=== PATIENT | female | born 1960 | race Two or more races ===

== ENCOUNTER 2023-01-24 12:54 | Outpatient (REF) | payer MEDICARE, OTHER, SELFPAY ==
--- NOTE | ~2023-01-24 | XR_ITS ---
EXAMINATION: XR KNEE, BILATERAL XR HAND/WRIST, BILATERAL XR KNEE STANDING, BILATERAL CLINICAL INDICATIONS: Arthropathic psoriasis. COMPARISON: None available. TECHNIQUE: AP bilateral knee standing, 2 views each knee. 4 views each hand and wrist. FINDINGS: AP BILATERAL KNEE STANDING: There is mild reduction in the medial compartment joint space both knees. The lateral compartment joint space is preserved. No visible acute fracture, dislocation or bony erosive changes seen. BILATERAL KNEE: The tricompartment joint space is preserved. No visible acute fracture or dislocation seen. No bony erosive changes. The soft tissues are normal. No joint effusion seen. BILATERAL HAND/WRIST: There is severe degenerative arthritic changes PIP and DIP joints all digits and both hands. There is moderate periarticular spurring DIP joint 2nd, 3rd, PIP and DIP joints 4th and 5th digits right hand. Similar findings are seen in the left hand involving DIP joints all digits and PIP joint 5th digit. Moderate osteophytosis is seen in the PIP joint 1st digit left hand. Mild degenerative arthritic changes 1st carpometacarpal joint left hand is noted. There is no visible acute fracture or dislocation seen. No subluxation. There is soft tissue swelling along the PIP and DIP joints both digits. XR/XR knee LT 3V IMPRESSION: 1. Severe degenerative arthritic changes PIP and DIP joints all digits and 1st digit of both hands. No visible acute fracture, dislocation or subluxation seen. 2. Mild degenerative changes medial compartment both knees. 3. Unremarkable bilateral knee exam.
--- NOTE | ~2023-01-24 | XR_ITS ---
EXAMINATION: XR KNEE, BILATERAL XR HAND/WRIST, BILATERAL XR KNEE STANDING, BILATERAL CLINICAL INDICATIONS: Arthropathic psoriasis. COMPARISON: None available. TECHNIQUE: AP bilateral knee standing, 2 views each knee. 4 views each hand and wrist. FINDINGS: AP BILATERAL KNEE STANDING: There is mild reduction in the medial compartment joint space both knees. The lateral compartment joint space is preserved. No visible acute fracture, dislocation or bony erosive changes seen. BILATERAL KNEE: The tricompartment joint space is preserved. No visible acute fracture or dislocation seen. No bony erosive changes. The soft tissues are normal. No joint effusion seen. BILATERAL HAND/WRIST: There is severe degenerative arthritic changes PIP and DIP joints all digits and both hands. There is moderate periarticular spurring DIP joint 2nd, 3rd, PIP and DIP joints 4th and 5th digits right hand. Similar findings are seen in the left hand involving DIP joints all digits and PIP joint 5th digit. Moderate osteophytosis is seen in the PIP joint 1st digit left hand. Mild degenerative arthritic changes 1st carpometacarpal joint left hand is noted. There is no visible acute fracture or dislocation seen. No subluxation. There is soft tissue swelling along the PIP and DIP joints both digits. XR/XR hand wrist LT IMPRESSION: 1. Severe degenerative arthritic changes PIP and DIP joints all digits and 1st digit of both hands. No visible acute fracture, dislocation or subluxation seen. 2. Mild degenerative changes medial compartment both knees. 3. Unremarkable bilateral knee exam.
--- NOTE | ~2023-01-24 | XR_ITS ---
EXAMINATION: XR KNEE, BILATERAL XR HAND/WRIST, BILATERAL XR KNEE STANDING, BILATERAL CLINICAL INDICATIONS: Arthropathic psoriasis. COMPARISON: None available. TECHNIQUE: AP bilateral knee standing, 2 views each knee. 4 views each hand and wrist. FINDINGS: AP BILATERAL KNEE STANDING: There is mild reduction in the medial compartment joint space both knees. The lateral compartment joint space is preserved. No visible acute fracture, dislocation or bony erosive changes seen. BILATERAL KNEE: The tricompartment joint space is preserved. No visible acute fracture or dislocation seen. No bony erosive changes. The soft tissues are normal. No joint effusion seen. BILATERAL HAND/WRIST: There is severe degenerative arthritic changes PIP and DIP joints all digits and both hands. There is moderate periarticular spurring DIP joint 2nd, 3rd, PIP and DIP joints 4th and 5th digits right hand. Similar findings are seen in the left hand involving DIP joints all digits and PIP joint 5th digit. Moderate osteophytosis is seen in the PIP joint 1st digit left hand. Mild degenerative arthritic changes 1st carpometacarpal joint left hand is noted. There is no visible acute fracture or dislocation seen. No subluxation. There is soft tissue swelling along the PIP and DIP joints both digits. XR/XR knee RT 3V IMPRESSION: 1. Severe degenerative arthritic changes PIP and DIP joints all digits and 1st digit of both hands. No visible acute fracture, dislocation or subluxation seen. 2. Mild degenerative changes medial compartment both knees. 3. Unremarkable bilateral knee exam.
--- NOTE | ~2023-01-24 | XR_ITS ---
EXAMINATION: XR KNEE, BILATERAL XR HAND/WRIST, BILATERAL XR KNEE STANDING, BILATERAL CLINICAL INDICATIONS: Arthropathic psoriasis. COMPARISON: None available. TECHNIQUE: AP bilateral knee standing, 2 views each knee. 4 views each hand and wrist. FINDINGS: AP BILATERAL KNEE STANDING: There is mild reduction in the medial compartment joint space both knees. The lateral compartment joint space is preserved. No visible acute fracture, dislocation or bony erosive changes seen. BILATERAL KNEE: The tricompartment joint space is preserved. No visible acute fracture or dislocation seen. No bony erosive changes. The soft tissues are normal. No joint effusion seen. BILATERAL HAND/WRIST: There is severe degenerative arthritic changes PIP and DIP joints all digits and both hands. There is moderate periarticular spurring DIP joint 2nd, 3rd, PIP and DIP joints 4th and 5th digits right hand. Similar findings are seen in the left hand involving DIP joints all digits and PIP joint 5th digit. Moderate osteophytosis is seen in the PIP joint 1st digit left hand. Mild degenerative arthritic changes 1st carpometacarpal joint left hand is noted. There is no visible acute fracture or dislocation seen. No subluxation. There is soft tissue swelling along the PIP and DIP joints both digits. XR/XR hand wrist RT IMPRESSION: 1. Severe degenerative arthritic changes PIP and DIP joints all digits and 1st digit of both hands. No visible acute fracture, dislocation or subluxation seen. 2. Mild degenerative changes medial compartment both knees. 3. Unremarkable bilateral knee exam.
--- NOTE | ~2023-01-24 | XR_ITS ---
EXAMINATION: XR KNEE, BILATERAL XR HAND/WRIST, BILATERAL XR KNEE STANDING, BILATERAL CLINICAL INDICATIONS: Arthropathic psoriasis. COMPARISON: None available. TECHNIQUE: AP bilateral knee standing, 2 views each knee. 4 views each hand and wrist. FINDINGS: AP BILATERAL KNEE STANDING: There is mild reduction in the medial compartment joint space both knees. The lateral compartment joint space is preserved. No visible acute fracture, dislocation or bony erosive changes seen. BILATERAL KNEE: The tricompartment joint space is preserved. No visible acute fracture or dislocation seen. No bony erosive changes. The soft tissues are normal. No joint effusion seen. BILATERAL HAND/WRIST: There is severe degenerative arthritic changes PIP and DIP joints all digits and both hands. There is moderate periarticular spurring DIP joint 2nd, 3rd, PIP and DIP joints 4th and 5th digits right hand. Similar findings are seen in the left hand involving DIP joints all digits and PIP joint 5th digit. Moderate osteophytosis is seen in the PIP joint 1st digit left hand. Mild degenerative arthritic changes 1st carpometacarpal joint left hand is noted. There is no visible acute fracture or dislocation seen. No subluxation. There is soft tissue swelling along the PIP and DIP joints both digits. XR/XR knee standing BI IMPRESSION: 1. Severe degenerative arthritic changes PIP and DIP joints all digits and 1st digit of both hands. No visible acute fracture, dislocation or subluxation seen. 2. Mild degenerative changes medial compartment both knees. 3. Unremarkable bilateral knee exam.
[2023-01-24 15:47] LABS: Basophils Absolute Auto 0.1 X10*3/uL (0.0-0.2); Basophils Percent Auto 0.9 % (0-2); Eosinophils Absolute Auto 0.2 X10*3/uL (0.0-0.4); Eosinophils Percent Auto 3.3 % (0-4); Hematocrit 39.2 % (37.0-47.0); Hemoglobin 12.7 g/dl (12.0-16.0); Imm Gran Abs Auto 0.01 X10*3/uL (0.00-0.03); Imm Gran Pct Auto 0.2 % (0.0-0.4); Lymphocytes Absolute Auto 2.1 X10*3/uL (1.2-4.9); Lymphocytes Percent Auto 38.3 % (20-40); MANUAL DIFF FLAG NO; Mean Corpuscular HGB Conc 32.4 g/dl (31.0-35.0); Mean Corpuscular Volume 92.7 fL (80.0-98.0); Mean Platelet Volume 11.8 fL (9.4-12.3); Monocytes Absolute Auto 0.5 X10*3/uL (0.1-1.2); Monocytes Percent Auto 9.4 % (2-11); Neutrophils Absolute Auto 2.6 x10*3/uL (2.0-8.3); Neutrophils Percent Auto 47.9 % (45-73); Platelet Count 238 X10*3/uL (160-400); Red Blood Count 4.23 X10*6/uL (4.20-5.50); Red Cell Distribution Width 13.7 % (11.0-16.0); White Blood Count 5.5 X10*3/uL (4.8-10.8)
[2023-01-24 16:23] LABS: Erythrocyte Sedimentation Rate 10 MM/HR (0-20)
[2023-01-24 16:53] LABS: Alanine Aminotransferase 19 U/L (0-31); Alkaline Phosphatase 144 U/L (39-117); Anion Gap 14 (12-20); Aspartate Amino Transferase 18 U/L (5-31); Bilirubin Total 0.2 mg/dL (0.0-1.0); Blood Urea Nitrogen 15 mg/dL (9-16); C Reactive Protein < 0.10 mg/dL (< or = 0.50); Calcium 9.4 mg/dL (8.4-10.2); Carbon Dioxide 23 mmol/L (22-29); Chloride 111 mmol/L (96-108); Estimated Glomerular Filt Rate > 60; Glucose Random 92 mg/dL (60-115); Sodium 144 mmol/L (135-145); Total Protein 6.8 g/dL (6.5-8.0); Uric Acid 5.4 mg/dL (2.4-5.7)
[2023-01-26 04:01] LABS: HBc Num1 0.09 S/CO (0.00-0.79); HBsAGNum1 0.37 S/CO (0.00-0.99); Hepatitis A Antibody IgM 0.13 Index (0-0.79); Hepatitis B Core Antibody Nonreactive (Nonreactive); Hepatitis B Surface Antigen Negative (Negative); ~HepC Num1 0.09 S/CO (0.00-0.79); ~Hepatitis A Antibody IgM Nonreactive (Nonreactive); ~Hepatitis B Surface Antibody NONREACTIVE (Nonreactive); ~Hepatitis C Antibody Nonreactive (Nonreactive)
[2023-01-26 14:53] LABS: TS Negative Control Passed; TS Panel A 1; TS Panel B 3; TS Positive Control Passed; TSpotTB Negative (Negative)
[2023-01-30 22:42] LABS: Prot Elec - Alpha1 0.3 g/dL (0.2-0.3); Prot Elec - Alpha2 0.8 g/dL (0.5-0.9); Prot Elec - Beta 1 0.5 g/dL (0.4-0.6); Prot Elec - Beta 2 0.4 g/dL (0.2-0.5); Prot Elec - Gamma 0.8 g/dL (0.8-1.7); Prot Elec - Total Protein 6.8 g/dL (6.1-8.1)
[2023-02-01 12:09] LABS: IgA 260 mg/dL (70-320); IgG 965 mg/dL (600-1540); IgM 37 mg/dL (50-300)
== END 2023-01-24 12:55 | disposition home or self-care (01) ==
LOC: HO.LAB 12:54
PROVIDERS: PCP Family Medicine; Visit Provider Student in an Organized Health Care Education/Training Program
DX: Z11.59 Encounter for screening for other viral diseases (principal); Z11.7 Encounter for testing for latent tuberculosis infection; L40.50 Arthropathic psoriasis, unspecified; M25.542 Pain in joints of left hand; M79.7 Fibromyalgia; Z72.89 Other problems related to lifestyle
CPT/HCPCS: 36415; 73110; 73130; 73562; 73564; 73565; 80053; 82784; 84165; 84550; 85025; 85652; 86140; 86334; 86481; 86704; 86706; 86709; 86803; 87340; 99202

== ENCOUNTER 2023-04-27 11:59 | Outpatient (AMB) | payer MEDICARE, OTHER, SELFPAY ==
--- NOTE | 2023-04-27 12:00 | MHC.OFFVIS ---
Intake Vital Signs 04/27/23 12:01 Height 5 ft 5 in Weight 205 lb 0.478 oz BMI 34.1 BP 112/68 Blood Pressure Location Rt brachial Position Sitting Pulse 95 Pulse Source Pulse Oximeter Temp 97.0 F Temp Source Skin Pulse Oximetry (%) 91 L Intake Visit Reasons: PsA [employer] Tender Required: No Accompanied by: Self / Same As Patient Allergies clarithromycin [From Biaxin] Allergy (Mild, Verified 01/24/23 13:01) Unknown doxycycline Allergy (Mild, Verified 01/24/23 13:01) Abdominal Pain Penicillins Allergy (Mild, Verified 01/24/23 13:01) Rash codeine Adverse Reaction (Unknown, Verified 01/24/23 13:02) Hallucinations Medication List - Last Reconciled 04/27/23 by Zelalem Sethi MD atorvastatin 40 mg PO DAILY bupropion HCl 150 mg PO DAILY ykeiobjjyj-dmauvyjxuxkpv-mfkn 50-325-40 mg 1 tab PO DAILY PRN cyclosporine 0.05% (Restasis) drps ophthalmic (eye) BID duloxetine 60 mg PO DAILY duloxetine 30 mg PO DAILY levothyroxine 100 mcg PO DAILY oxybutynin chloride ER 5 mg PO DAILY pantoprazole 40 mg PO DAILY pregabalin 200 mg PO BID risankizumab-rzaa (Skyrizi) 150 mg subcut Q12W sumatriptan succinate 100 mg PO DAILY PRN vitamin B complex (Vitamins B Complex tablet) tabs PO HPI HPI Comments History of Present Illness Details Patient returns for follow-up after completion of her blood work and x-rays. Continues to be about the same. Diffuse pain everywhere. She is having right lower back and buttock pain recently. She did not do her Skyrizi dose which was scheduled towards the end of January2023. He did not feel a difference off skyrizi Initial history: This is a 62-year-old female with a past medical history of psoriatic arthritis who presents for evaluation of diffuse joint pain. Her previous plant operator/shift supervisor left the practice. Patient states that she started having diffuse pains since the , she was ultimately diagnosed with fibromyalgia around 2004 and had been on numerous DMARDs. Please see assessment. Most recently she was started on Cosentyx in June of 2021 which was not effective then switched to SKyrizi which was started in June of 2022 which patient also states that it is not effective. She has had a colonoscopy in the past which showed polyps that were non malignant. No history suggestive of uveitis or IBD Patient continues to have diffuse pain in her hands, knuckles, wrists, lower back, knees, feet. Pain is most severe at night. Patient has a history of fibromyalgia and is on duloxetine and Lyrica. She has history of obstructive sleep apnea and uses a CPAP machine. States that her sister recently . Patient is currently trying to find a psychotherapist [facility] Medical History Anxiety Cerebrovascular accident Fatigue Hypothyroidism Inflammatory polyarthropathy Insomnia Major depressive disorder Migraine Obesity Osteoarthritis Primary fibromyalgia Pure hypercholesterolemia Surgical History H/O shoulder surgery H/O wisdom tooth extraction History of 2 sections History of carpal tunnel release Hx of tonsillectomy Family History Mother Diabetes Hyperlipidemia Heart disease Depression Psoriasis Brother Diabetes Heart disease HIV (human immunodeficiency virus infection) Sister Malignant tumor of breast Depression Heart disease Father Hypertension Diabetes Social History Household Members: Spouse Alcohol intake: current Alcohol intake frequency: does not drink Patient Tobacco Use Status: Never used Tobacco Current occupational status: disabled Current occupation: used to work in IT.Disabled since 2015 Review of Systems [facility] [place] Reports back pain, Reports arthralgias, Reports joint swelling, Reports limited range of motion and Reports stiffness Physical Exam Vital Signs: Last Vital Signs Temp 97.0 F 04/27/23 12:01 Pulse 95 04/27/23 12:01 BP 112/68 04/27/23 12:01 Pulse Ox 91 L 04/27/23 12:01 BMI result Body Mass Index 34.1 Const General: cooperative, healthy appearing and comfortable Nutritional Appearance: obese Orientation/consciousness: patient oriented x3 Limitations: no limitations HEENT Head: Yes normocephalic and Yes atraumatic Mouth: moist mucous membranes Resp Effort & Inspection: normal respiratory effort Skin General skin exam: no rashes or lesions noted Neuro General: patient oriented x3 Extrem Other: Bilateral wrist tenderness and pain with full flexion and extension Bilateral diffuse MCP tenderness Extensive osteoarthritic changes of both hands with prominent Rajendra's and Heberden's nodes bilaterally that are tender Normal range of motion of both elbows and shoulders Bilateral diffuse MTP tenderness Diffuse fibromyalgia tender points Results Reviewed Results Reviewed: Labs 2020 MARIBELL/RF/CCP/HLA B27 all negative? ESR/CRP normal CBC the and CMP within normal SI joint x-ray 05/2021? Impression:? No evidence of sacroiliitis, degenerative change of the lumbosacral junction on the left Assessment & Plan Assessment & Plan (1) Psoriatic arthritis: Comment: started in the . NSAIDs failed & caused GI upset dx 2004 failed Humira, Enbrel, HCQ MTX caused transaminitis Cosentyx started 06/30 advanced to 300 mg not effective Skyrizi started 07/01-01/30 ineffective Code(s): L40.50 - Arthropathic psoriasis, unspecified Plan: This is a 63-year-old female with a past medical history of seronegative arthritis who presents for follow-up. Patient stopped Skyrizi 01/2023 as it was not helpful. She continues to have diffuse pain in her joints, muscles, back, right buttock. Upon evaluation today I do not see any signs of autoimmune rheumatic disease. Labs show normal inflammatory markers. Bilateral hand x-rays show extensive osteoarthritic changes with no evidence of inflammatory arthritis I do not see any signs of inflammatory arthritis today. Would watch patient off DMARDs at this point. Patient states that she will be going to [place] and will be back around December. Follow-up in December 2023 Patient was never evaluated by Pain Management. Will refer patient to pain management to evaluate her lower back pain. Labs before next visit (2) Primary fibromyalgia: Code(s): M79.7 - Fibromyalgia Plan: Fibromyalgia was discussed in detail with patient last visit. Encouraged patient to try to incorporate light activities. Continue duloxetine and Lyrica. Prescribed by other providers Plan I spent 28 minutes reviewing patient's chart, evaluating patient, ordering diagnostic workup, counseling patient and documenting in the chart Orders: Orders Comprehensive Met. Panel 8 Months L40.50 - Arthropathic psoriasis, unspecified C Reactive Protein 8 Months L40.50 - Arthropathic psoriasis, unspecified Complete Blood Count Auto Diff 8 Months L40.50 - Arthropathic psoriasis, unspecified Erythrocyte Sedimentation Rate 8 Months L40.50 - Arthropathic psoriasis, unspecified Referrals Pain Management Referral G89.29 - Other chronic pain, M54.50 - Low back pain, unspecified Coding Level of Care Code Est Pt Level 4 (72751) Diagnoses Psoriatic arthritis L40.50 Primary fibromyalgia M79.7
[2023-04-27 12:01] VITALS: BP 112/68; PULSE 95; TEMP 36.1; O2SAT 91; BMI 34.1
== END 2023-04-27 12:41 | disposition home or self-care (01) ==
PROVIDERS: PCP Family Medicine; Visit Provider Student in an Organized Health Care Education/Training Program
DX: L40.50 Arthropathic psoriasis, unspecified (principal); M79.7 Fibromyalgia
CPT/HCPCS: 99214

== ENCOUNTER → 2023-04-27 11:59 | Outpatient (BNVA) | payer MEDICARE, OTHER, SELFPAY | PROVIDERS: PCP Family Medicine; Visit Provider Student in an Organized Health Care Education/Training Program | DX: L40.50 Arthropathic psoriasis, unspecified (principal); M79.7 Fibromyalgia | CPT/HCPCS: 99212 ==

== ENCOUNTER 2023-05-10 13:57 | Outpatient (REF) | payer MEDICARE, OTHER, SELFPAY ==
--- NOTE | ~2023-05-10 | XR_ITS ---
EXAMINATION: XR LUMBOSACRAL SPINE WITH OBLIQUES CLINICAL INFORMATION: Spondylosis without myelopathy or radiculopathy, lumbar region COMPARISON: None available. TECHNIQUE: AP, both oblique, and lateral views of the lumbar spine. Lateral view of the lumbosacral junction. FINDINGS: Mineralization is normal. No fracture is seen and there is no dislocation. The posterior elements appear intact. Vertebral alignment is normal. There is a convex left spinal curvature centered at L2. There is sacralization of L5. There is disc space narrowing at several levels, most prominent at L4-L5 where the there is endplate sclerosis and marginal osteophyte. There is degenerative facet arthropathy at L3-L4 and L4-L5. The paraspinal soft tissues appear unremarkable. XR/XR lumbar spine 4V min IMPRESSION: Scoliosis with degenerative disc and facet disease. Sacralization of L5.
== END 2023-05-10 13:58 | disposition home or self-care (01) ==
LOC: HO.XRAY 13:57
PROVIDERS: PCP Family Medicine; Visit Provider Registered Nurse Emergency
DX: M47.816 Spondylosis without myelopathy or radiculopathy, lumbar region (principal); M53.3 Sacrococcygeal disorders, not elsewhere classified
CPT/HCPCS: 72110; 99202

== ENCOUNTER 2023-05-10 13:57 | Outpatient (AMB) | payer MEDICARE, OTHER, SELFPAY ==
--- NOTE | 2023-05-10 14:04 | A.OFFVIS_ITS ---
Intake Vital Signs 05/10/23 14:12 Height 5 ft 5 in Weight 203 lb 2 oz BMI 33.8 BP 136/82 Blood Pressure Location Lt brachial Position Sitting Respiration 16 Pulse 86 Pulse Source Pulse Oximeter Pulse Oximetry (%) 95 Oxygen Delivery Method Room Air Intake Visit Reasons: Low Back Pain, Unspecified Allergies clarithromycin [From Biaxin] Allergy (Mild, Verified 05/10/23 14:03) Unknown doxycycline Allergy (Mild, Verified 05/10/23 14:03) Abdominal Pain Penicillins Allergy (Mild, Verified 05/10/23 14:03) Rash codeine Adverse Reaction (Unknown, Verified 05/10/23 14:03) Hallucinations HPI HPI Comments History of Present Illness Details Hayley is a very pleasant 63 year old female who presents to the office today for evaluation and management of her chronic lower back pain. Patient reports that she has been suffering with this pain for greater than 10 years, pain comes and goes but is present at some point every single day. She rates her pain today as 7/10, across her lower back. Patient reports the pain is worse with doing activities that require bending over, if she sits for too long, climbs or descends stairs and with lifting. Patient has had x-rays in the past at [facility] in [place]. She has done physical therapy in the past without relief of her pain, she does home exercise program, takes anti-inflammatory pain medicine and is currently on duloxetine and Lyrica for her fibromyalgia. She has tried muscle relaxers in the past but she did not tolerate. She has never tried chiropractor, acupuncture, massage or injections to her lower back. Patient denies red flag symptoms including loss of bowel, bladder or saddle anesthesia. In terms of muscle damage condition is described as aching, hot, burning, stabbing, sharp, tiring, exhausting, cramping, squeezing and throbbing. Pain is negatively impacting her enjoyment of life, general activity, mood, recreational activities, relationships with people, sleep, walking, exercising and maintaining the home. Patient does endorse use of THC edibles for her chronic pain. [facility] Medical History Anxiety Cerebrovascular accident Fatigue Hypothyroidism Inflammatory polyarthropathy Insomnia Major depressive disorder Migraine Obesity Osteoarthritis Primary fibromyalgia Pure hypercholesterolemia Surgical History H/O shoulder surgery H/O wisdom tooth extraction History of 2 sections History of carpal tunnel release Hx of tonsillectomy Family History Mother Diabetes Hyperlipidemia Heart disease Depression Psoriasis Brother Diabetes Heart disease HIV (human immunodeficiency virus infection) Sister Malignant tumor of breast Depression Heart disease Father Hypertension Diabetes Social History Household Members: Spouse Alcohol intake: current Alcohol intake frequency: does not drink Patient Tobacco Use Status: Never used Tobacco Current occupational status: disabled Current occupation: used to work in IT.Disabled since 2016 Review of Systems Const All systems reviewed & are unremarkable except as noted in HPI and below Physical Exam Vital Signs: Last Vital Signs Pulse 86 05/10/23 14:12 Resp 16 05/10/23 14:12 BP 136/82 05/10/23 14:12 Pulse Ox 95 05/10/23 14:12 Oxygen Delivery Method Room Air 05/10/23 14:12 BMI result Body Mass Index 33.8 General: awake, alert, oriented. Answers questions appropriately. Fully engaged in examination. Skin: warm, dry, intact HEENT: Normocephalic. Hearing intact. Cardiac: External chest normal in appearance. Respiratory: No cough, audible wheezing or stridor. Abdomen: without gross distension. Neurological: Oriented to person, place, time and situation. Thought process intact. No gait abnormalities appreciated. Psychiatric: Appropriate mood and affect. Good judgment and insight. Back/Spine/Pelvis Other: Lumbar exam: Able to stand on bilateral tiptoes and bilateral heels. Able to transition from sit to stand unassisted. Ambulates with bilaterally normal heel strike and toe off Visual inspection without gross abnormality Tender to palpation over PSIS Nontender to palpation over midline lumbar vertebrae ROM: extension to 15 degrees. flexion to 80 degrees Strength: 5/5 BLE Sensation: intact and symmetric BLE DTR: intact and symmetric Straight leg raises with and without dorsiflexion negative bilaterally Facet loading positive bilaterally TRACE positive bilaterally Thigh thrust positive bilaterally SI compression positive bilaterally Assessment & Plan Assessment & Plan (1) Lumbar spondylosis: Code(s): M47.816 - Spondylosis without myelopathy or radiculopathy, lumbar region (2) Facet arthritis of lumbar region: Code(s): M47.816 - Spondylosis without myelopathy or radiculopathy, lumbar region (3) Sacroiliac joint dysfunction of both sides: Code(s): M53.3 - Sacrococcygeal disorders, not elsewhere classified Isidro Hardy is a very pleasant 63-year-old female who presented to the office today for evaluation and management of her chronic lower back pain. History, physical exam and corrective testing most consistent with bilateral sacroiliac joint dysfunction along with lumbar facet arthropathy. X-ray lumbar spine ordered Discussed options for treatment including diagnostic interventional testing, steroid injections, peripheral nerve stimulation with Sprint, RFA and more permanent neuromodulation. Justification for interventional therapy: ? Patient with average pain > 6/10 ? Patient has exhausted conservative therapy, physical therapy, NSAIDs The risks, consequences, alternatives, and benefits of various treatment options were discussed with the patient in great detail, including conservative management, injections and procedures. Schedule for Fluoroscopy guided diagnostic SI joint injections with local anesthetic. All questions and concerns have been answered and patient agrees with the plan. Follow up after injections and sooner if needed. Orders: Orders XR lumbar spine 4V min Today M47.816 - Spondylosis without myelopathy or radiculopathy, lumbar region Coding Level of Care Code New Pt Level 4 (49777) Diagnoses Lumbar spondylosis M47.816 Facet arthritis of lumbar region M47.816 Sacroiliac joint dysfunction of both sides M53.3
[2023-05-10 14:12] VITALS: BP 136/82; PULSE 86; RESP 16; O2SAT 95; BMI 33.8
== END 2023-05-10 14:43 | disposition home or self-care (01) ==
PROVIDERS: PCP Family Medicine; Visit Provider Registered Nurse Emergency
DX: M47.816 Spondylosis without myelopathy or radiculopathy, lumbar region (principal); M53.3 Sacrococcygeal disorders, not elsewhere classified
CPT/HCPCS: 99204

== ENCOUNTER 2023-05-29 06:22 | Outpatient (REF) | payer MEDICARE, OTHER, SELFPAY ==
--- NOTE | ~2023-05-29 | FL_ITS ---
EXAMINATION: XR FLUOROSCOPY WITH IMAGES CLINICAL INFORMATION: Sacrococcygeal disorders, not elsewhere classified. COMPARISON: None available. TECHNIQUE: Fluoroscopy Supervised By: Dr. Claudio Owen. Fluoroscopy Time: 0.2 minutes. Cumulative Dose: 2.86 mGy. DAP: 0.0498 Gycm2. Images: 2. FINDINGS: Images demonstrate needle placement contrast section of the bilateral sacroiliac joints. FL/FL guidance in treatment room IMPRESSION: Fluoroscopy guidance sacroiliac joint injection
== END 2023-05-29 06:23 | disposition home or self-care (01) ==
LOC: CF 06:22
PROVIDERS: Visit Provider Anesthesiology
DX: M53.3 Sacrococcygeal disorders, not elsewhere classified (principal)
CPT/HCPCS: 27096

== ENCOUNTER 2023-05-29 13:39 | Outpatient (AMB) | payer MEDICARE, OTHER, SELFPAY ==
--- NOTE | 2023-05-29 13:45 | MHC.OFFVIS ---
Intake Vital Signs 05/29/23 13:46 05/29/23 13:46 Height 5 ft 5 in 5 ft 5 in Weight 203 lb 203 lb BMI 33.8 33.8 BP 108/70 128/62 Blood Pressure Location Lt brachial Rt brachial Position Sitting Sitting Respiration 14 14 Pulse 90 85 Pulse Source Pulse Oximeter Pulse Oximeter Pulse Oximetry (%) 94 95 Oxygen Delivery Method Room Air Room Air Comment pre-op post-op Intake Visit Reasons: BILAT DX SIJ INJ/LOCAL Allergies clarithromycin [From Biaxin] Allergy (Mild, Verified 05/29/23 13:46) Unknown doxycycline Allergy (Mild, Verified 05/29/23 13:46) Abdominal Pain Penicillins Allergy (Mild, Verified 05/29/23 13:46) Rash codeine Adverse Reaction (Unknown, Verified 05/29/23 13:46) Hallucinations PFSH Medical History Anxiety Cerebrovascular accident Fatigue Hypothyroidism Inflammatory polyarthropathy Insomnia Major depressive disorder Migraine Obesity Osteoarthritis Primary fibromyalgia Pure hypercholesterolemia Surgical History H/O shoulder surgery H/O wisdom tooth extraction History of 2 sections History of carpal tunnel release Hx of tonsillectomy Family History Mother Diabetes Hyperlipidemia Heart disease Depression Psoriasis Brother Diabetes Heart disease HIV (human immunodeficiency virus infection) Sister Malignant tumor of breast Depression Heart disease Father Hypertension Diabetes Social History Household Members: Spouse Alcohol intake: current Alcohol intake frequency: does not drink Patient Tobacco Use Status: Never used Tobacco Current occupational status: disabled Current occupation: used to work in IT.Disabled since 2015 Physical Exam Vital Signs: Last Vital Signs Pulse 85 05/29/23 13:46 Resp 14 05/29/23 13:46 BP 128/62 05/29/23 13:46 Pulse Ox 95 05/29/23 13:46 Oxygen Delivery Method Room Air 05/29/23 13:46 BMI result Body Mass Index 33.8 Assessment & Plan Assessment & Plan (1) Sacroiliac joint dysfunction of both sides: Code(s): M53.3 - Sacrococcygeal disorders, not elsewhere classified Plan bilateral therapeutic sacroiliac joint injection Informed consent was explained thoroughly to the patient. All questions about benefits and risks for the procedure were answered. Patient came to the operating room and was positioned prone on the operating table with the pillow under the pelvis. Time out was performed delineating name and of the patient, allergies and the nature of the procedure. The lower back and buttocks of the patient were prepped with ChloraPrep prepped and draped with sterile utility towels. C-arm was brought over the operating field and sq picture of patient's pelvis was demonstrated on the screen. For the bilateral joint tilting C-arm contralateral to the site of the joint the most posterior portion of the joints was superimposed with anterior silhouette of the joint. Skin was injected in the projection of the joint slightly medial to the location of the joint with 25 gauge 1/2 inch needle using local lidocaine 2% .After that 22 gauge 3 and 1/2 inch needle was driven to the either joint in tunnel vision fashion. When needle entered the joint capsule injection of the contrast was performed demonstrating intra-articular and minimally periarticular spread of the contrast. After that 4 cc. of ropivacaine 0.5% was injected into each joint. Upon completion of the injections the needle was removed Sterile dressing was applied. Upon completion of the injection patient was taken outside of the operating room to the recovery room where recovered uneventfully. Orders: Orders FL guidance in treatment room Today M53.3 - Sacrococcygeal disorders, not elsewhere classified Coding Level of Care Code Procedure Only Diagnoses Sacroiliac joint dysfunction of both sides M53.3
[2023-05-29 13:46] VITALS: BP 108/70; BP 128/62; PULSE 85; PULSE 90; RESP 14; O2SAT 94; O2SAT 95; BMI 33.8
== END 2023-05-29 14:14 | disposition home or self-care (01) ==
LOC: HO.PMCPRC 13:39
PROVIDERS: PCP Family Medicine; Visit Provider Anesthesiology
DX: M53.3 Sacrococcygeal disorders, not elsewhere classified (principal)
CPT/HCPCS: 27096

== ENCOUNTER 2023-05-31 09:17 | Outpatient (AMB) | payer MEDICARE, OTHER, SELFPAY ==
[2023-05-31 09:28] VITALS: BP 106/60; PULSE 93; RESP 18; O2SAT 97; BMI 34.8
--- NOTE | 2023-05-31 09:28 | A.OFFVIS_ITS ---
Intake Vital Signs 05/31/23 09:28 Height 5 ft 5 in Weight 209 lb 6 oz BMI 34.8 BP 106/60 Blood Pressure Location Lt brachial Position Sitting Respiration 18 Pulse 93 Pulse Source Pulse Oximeter Pulse Oximetry (%) 97 Oxygen Delivery Method Room Air Intake Visit Reasons: BILAT DX SIJ INJ 05/29/23/Lvm Allergies clarithromycin [From Biaxin] Allergy (Mild, Verified 05/31/23 09:30) Unknown doxycycline Allergy (Mild, Verified 05/31/23 09:30) Abdominal Pain Penicillins Allergy (Mild, Verified 05/31/23 09:30) Rash codeine Adverse Reaction (Unknown, Verified 05/31/23 09:30) Hallucinations HPI HPI Comments History of Present Illness Details Hayley presents back to the office today for follow-up, 2 days status post bilateral diagnostic SI joint injections. Patient reports 100% pain relief for the last 2 days. She has been able to wash dishes, cook, do laundry and even garden without pain . Prior: Hayley is a very pleasant 63 year old female who presents to the office today for evaluation and management of her chronic lower back pain. Patient reports that she has been suffering with this pain for greater than 10 years, pain comes and goes but is present at some point every single day. She rates her pain today as 7/10, across her lower back. Patient reports the pain is worse with doing activities that require bending over, if she sits for too long, climbs or descends stairs and with lifting. Patient has had x-rays in the past at [facility] in [place]. She has done physical therapy in the past without relief of her pain, she does home exercise program, takes anti-inflammatory pain medicine and is currently on duloxetine and Lyrica for her fibromyalgia. She has tried muscle relaxers in the past but she did not tolerate. She has never tried chiropractor, acupuncture, massage or injections to her lower back. Patient denies red flag symptoms including loss of bowel, bladder or saddle anesthesia. In terms of muscle damage condition is described as aching, hot, burning, stabbing, sharp, tiring, exhausting, cramping, squeezing and throbbing. Pain is negatively impacting her enjoyment of life, general activity, mood, recreational activities, relationships with people, sleep, walking, exercising and maintaining the home. Patient does endorse use of THC edibles for her chronic pain. [facility] Medical History Anxiety Cerebrovascular accident Fatigue Hypothyroidism Inflammatory polyarthropathy Insomnia Major depressive disorder Migraine Obesity Osteoarthritis Primary fibromyalgia Pure hypercholesterolemia Surgical History H/O shoulder surgery H/O wisdom tooth extraction History of 2 sections History of carpal tunnel release Hx of tonsillectomy Family History Mother Diabetes Hyperlipidemia Heart disease Depression Psoriasis Brother Diabetes Heart disease HIV (human immunodeficiency virus infection) Sister Malignant tumor of breast Depression Heart disease Father Hypertension Diabetes Social History Household Members: Spouse Alcohol intake: current Alcohol intake frequency: does not drink Patient Tobacco Use Status: Never used Tobacco Current occupational status: disabled Current occupation: used to work in IT.Disabled since 2015 Review of Systems Const All systems reviewed & are unremarkable except as noted in HPI and below Physical Exam Vital Signs: Last Vital Signs Pulse 93 05/31/23 09:28 Resp 18 05/31/23 09:28 BP 106/60 05/31/23 09:28 Pulse Ox 97 05/31/23 09:28 Oxygen Delivery Method Room Air 05/31/23 09:28 BMI result Body Mass Index 34.8 General: awake, alert, oriented. Answers questions appropriately. Fully engaged in examination. Skin: warm, dry, intact HEENT: Normocephalic. Hearing intact. Cardiac: External chest normal in appearance. Respiratory: No cough, audible wheezing or stridor. Abdomen: without gross distension. Neurological: Oriented to person, place, time and situation. Thought process intact. No gait abnormalities appreciated. Psychiatric: Appropriate mood and affect. Good judgment and insight. Results Reviewed Results Reviewed: 05/10/23 FINDINGS: Mineralization is normal. No fracture is seen and there is no dislocation. The posterior elements appear intact. Vertebral alignment is normal. There is a convex left spinal curvature centered at L2. There is sacralization of L5. There is disc space narrowing at several levels, most prominent at L4-L5 where the there is endplate sclerosis and marginal osteophyte. There is degenerative facet arthropathy at L3-L4 and L4-L5. The paraspinal soft tissues appear unremarkable. IMPRESSION: Scoliosis with degenerative disc and facet disease. Assessment & Plan Assessment & Plan (1) Lumbar spondylosis: Code(s): M47.816 - Spondylosis without myelopathy or radiculopathy, lumbar region (2) Facet arthritis of lumbar region: Code(s): M47.816 - Spondylosis without myelopathy or radiculopathy, lumbar region (3) Sacroiliac joint dysfunction of both sides: Code(s): M53.3 - Sacrococcygeal disorders, not elsewhere classified Plan Hayley is a very pleasant 63-year-old female who presented back to the office today for follow up s/p Fluoroscopy guided diagnostic SI joint injections with local anesthetic performed 05/29/23. Patient reports complete pain relief for last 2 days with improvement in function and mobility. The risks, consequences, alternatives, and benefits of various treatment options were discussed with the patient in great detail, including conservative management, injections and procedures. Schedule for Fluoroscopy guided bilateral therapeutic SI joint injections with local anesthetic. Justification for interventional therapy: ? Patient with average pain > 6/10 ? Patient has exhausted conservative therapy, physical therapy, NSAIDs All questions and concerns have been answered and patient agrees with the plan. Follow up after injections and sooner if needed. Coding Level of Care Code Est Pt Level 3 (34147) Diagnoses Lumbar spondylosis M47.816 Facet arthritis of lumbar region M47.816 Sacroiliac joint dysfunction of both sides M53.3
== END 2023-05-31 09:40 | disposition home or self-care (01) ==
PROVIDERS: PCP Family Medicine; Visit Provider Registered Nurse Emergency
DX: M47.816 Spondylosis without myelopathy or radiculopathy, lumbar region (principal); M53.3 Sacrococcygeal disorders, not elsewhere classified
CPT/HCPCS: 99213

== ENCOUNTER → 2023-05-31 09:17 | Outpatient (BNVA) | payer MEDICARE, OTHER, SELFPAY | PROVIDERS: PCP Family Medicine; Visit Provider Registered Nurse Emergency | DX: M47.816 Spondylosis without myelopathy or radiculopathy, lumbar region (principal); M53.3 Sacrococcygeal disorders, not elsewhere classified | CPT/HCPCS: 99212 ==

== ENCOUNTER 2023-06-19 06:03 | Outpatient (REF) | payer MEDICARE, OTHER, SELFPAY ==
--- NOTE | ~2023-06-19 | FL_ITS ---
EXAMINATION: XR FLUOROSCOPY WITH IMAGES CLINICAL INFORMATION: Sacrococcygeal disorders, not elsewhere classified. COMPARISON: None available. TECHNIQUE: Fluoroscopy Supervised By: Dr. Claudio Owen. Fluoroscopy Time: 0.1 minute. Cumulative Dose: 5.2 mGy. DAP: 0.0903 Gycm2. Images: 2. FINDINGS: Images demonstrate needle placement contrast injection of the bilateral sacroiliac joints FL/FL guidance in treatment room IMPRESSION: Fluoroscopy guidance for pain management procedure
== END 2023-06-19 06:04 | disposition home or self-care (01) ==
LOC: CF 06:03
PROVIDERS: Visit Provider Anesthesiology
DX: M47.816 Spondylosis without myelopathy or radiculopathy, lumbar region (principal); M53.3 Sacrococcygeal disorders, not elsewhere classified
CPT/HCPCS: 27096; J3301

== ENCOUNTER 2023-06-19 08:38 | Outpatient (AMB) | payer MEDICARE, OTHER, SELFPAY ==
[2023-06-19 08:50] VITALS: BP 118/86; PULSE 81; RESP 18; O2SAT 96; BMI 34.8
--- NOTE | 2023-06-19 08:50 | MHC.OFFVIS ---
Intake Vital Signs 06/19/23 08:50 06/19/23 08:51 Height 5 ft 5 in 5 ft 5 in Weight 209 lb 209 lb BMI 34.8 34.8 BP 118/86 122/84 Blood Pressure Location Rt brachial Rt brachial Position Sitting Sitting Respiration 18 18 Pulse 81 86 Pulse Source Pulse Oximeter Pulse Oximeter Pulse Oximetry (%) 96 96 Oxygen Delivery Method Room Air Room Air Comment pre-op post-op Intake Visit Reasons: BILATERAL THERAPEUTIC SIJ INJECTIONS Allergies clarithromycin [From Biaxin] Allergy (Mild, Verified 06/19/23 08:52) Unknown doxycycline Allergy (Mild, Verified 06/19/23 08:52) Abdominal Pain Penicillins Allergy (Mild, Verified 06/19/23 08:52) Rash codeine Adverse Reaction (Unknown, Verified 06/19/23 08:52) Hallucinations PFSH Medical History Anxiety Cerebrovascular accident Fatigue Hypothyroidism Inflammatory polyarthropathy Insomnia Major depressive disorder Migraine Obesity Osteoarthritis Primary fibromyalgia Pure hypercholesterolemia Surgical History H/O shoulder surgery H/O wisdom tooth extraction History of 2 sections History of carpal tunnel release Hx of tonsillectomy Family History Mother Diabetes Hyperlipidemia Heart disease Depression Psoriasis Brother Diabetes Heart disease HIV (human immunodeficiency virus infection) Sister Malignant tumor of breast Depression Heart disease Father Hypertension Diabetes Social History Household Members: Spouse Alcohol intake: current Alcohol intake frequency: does not drink Patient Tobacco Use Status: Never used Tobacco Current occupational status: disabled Current occupation: used to work in IT.Disabled since 2015 Physical Exam Vital Signs: Last Vital Signs Pulse 86 06/19/23 08:51 Resp 18 06/19/23 08:51 BP 122/84 06/19/23 08:51 Pulse Ox 96 06/19/23 08:51 Oxygen Delivery Method Room Air 06/19/23 08:51 BMI result Body Mass Index 34.8 Results Reviewed Results Reviewed: 06/19/23 09:09 Lidocaine HCl 2 % MPF [Xylocaine 2 % MPF] 5 ml .ROUTE .[facility] ONE Triamcinolone Acetonide [Kenalog-40] 40 mg .ROUTE .[facility] ONE Assessment & Plan Assessment & Plan (1) Lumbar spondylosis: Code(s): M47.816 - Spondylosis without myelopathy or radiculopathy, lumbar region (2) Facet arthritis of lumbar region: Code(s): M47.816 - Spondylosis without myelopathy or radiculopathy, lumbar region (3) Sacroiliac joint dysfunction of both sides: Code(s): M53.3 - Sacrococcygeal disorders, not elsewhere classified Plan: Bilateral therapeutic sacroiliac joint injection Informed consent was explained thoroughly to the patient. All questions about benefits and risks for the procedure were answered. Patient came to the operating room and was positioned prone on the operating table with the pillow under the pelvis. Time out was performed delineating name and of the patient, allergies and the nature of the procedure. The lower back and buttocks of the patient were prepped with ChloraPrep prepped and draped with sterile utility towels. C-arm was brought over the operating field and sq picture of patient's pelvis was demonstrated on the screen. For the right joint tilting C-arm contralateral to the site of the joint the most posterior portion of the joints was superimposed with anterior silhouette of the joint. Skin was injected in the projection of the joint slightly medial to the location of the joint with 25 gauge 1/2 inch needle using local lidocaine 2% .After that 22 gauge 3 and 1/2 inch needle was driven to the right joint in tunnel vision fashion. When needle entered the joint capsule injection of the contrast was performed demonstrating intra-articular and minimally periarticular spread of the contrast. After that 4 cc. of ropivacaine 0.5% mixed with kenalog 40 mg was injected into the joint. Upon completion of the injections the needle was removed Sterile dressing was applied. The procedure performed on the left SI joint in the mirroring fashion. Upon completion of the injection patient was taken outside of the operating room to the recovery room where recovered uneventfully. Isidro Hardy is a very pleasant 63-year-old female who presented back to the office today for follow up s/p Fluoroscopy guided diagnostic SI joint injections with local anesthetic performed 05/29/23. Patient reports complete pain relief for last 2 days with improvement in function and mobility. The risks, consequences, alternatives, and benefits of various treatment options were discussed with the patient in great detail, including conservative management, injections and procedures. Schedule for Fluoroscopy guided bilateral therapeutic SI joint injections with local anesthetic. Justification for interventional therapy: ? Patient with average pain > 6/10 ? Patient has exhausted conservative therapy, physical therapy, NSAIDs All questions and concerns have been answered and patient agrees with the plan. Follow up after injections and sooner if needed. Orders: Orders FL guidance in treatment room Today M53.3 - Sacrococcygeal disorders, not elsewhere classified Coding Level of Care Code Procedure Only Diagnoses Lumbar spondylosis M47.816 Facet arthritis of lumbar region M47.816 Sacroiliac joint dysfunction of both sides M53.3
[2023-06-19 08:51] VITALS: BP 122/84; PULSE 86; RESP 18; O2SAT 96; BMI 34.8
== END 2023-06-19 09:27 | disposition home or self-care (01) ==
LOC: HO.PMCPRC 08:38
PROVIDERS: PCP Family Medicine; Visit Provider Anesthesiology
DX: M53.3 Sacrococcygeal disorders, not elsewhere classified (principal); M47.816 Spondylosis without myelopathy or radiculopathy, lumbar region
CPT/HCPCS: 27096

== ENCOUNTER 2023-07-17 08:25 | Outpatient (AMB) | payer MEDICARE, OTHER, SELFPAY ==
--- NOTE | 2023-07-17 08:32 | A.OFFVIS_ITS ---
Intake Vital Signs 07/17/23 08:33 Height 5 ft 5 in Weight 210 lb BMI 34.9 BP 132/72 Blood Pressure Location Lt brachial Position Sitting Respiration 18 Pulse 101 H Pulse Source Pulse Oximeter Pulse Oximetry (%) 98 Oxygen Delivery Method Room Air Intake Visit Reasons: BILATERAL THERAPEUTIC SIJ INJ/06/19/23 LMOVM Allergies clarithromycin [From Biaxin] Allergy (Mild, Verified 07/17/23 08:32) Unknown doxycycline Allergy (Mild, Verified 07/17/23 08:32) Abdominal Pain Penicillins Allergy (Mild, Verified 07/17/23 08:32) Rash codeine Adverse Reaction (Unknown, Verified 07/17/23 08:32) Hallucinations HPI HPI Comments History of Present Illness Details Patient presents to the office today for follow up, 1 month s/p bilateral therapeutic SIJ injections. Patient reports 90% pain relief since the procedure with improvement in function and mobility. She is able to do things she enjoys like cook and bake that were too painful prior to the injections. She is looking forward to baking for the holidays which she has not been able to do for the last couple of years d/t the pain. Prior: Hayley presents back to the office today for follow-up, 2 days status post bilateral diagnostic SI joint injections. Patient reports 100% pain relief for the last 2 days. She has been able to wash dishes, cook, do laundry and even garden without pain . Prior: Hayley is a very pleasant 63 year old female who presents to the office today for evaluation and management of her chronic lower back pain. Patient reports that she has been suffering with this pain for greater than 10 years, pain comes and goes but is present at some point every single day. She rates her pain today as 7/10, across her lower back. Patient reports the pain is worse with doing activities that require bending over, if she sits for too long, climbs or descends stairs and with lifting. Patient has had x-rays in the past at [facility] in [place]. She has done physical therapy in the past without relief of her pain, she does home exercise program, takes anti-inflammatory pain medicine and is currently on duloxetine and Lyrica for her fibromyalgia. She has tried muscle relaxers in the past but she did not tolerate. She has never tried chiropractor, acupuncture, massage or injections to her lower back. Patient denies red flag symptoms including loss of bowel, bladder or saddle anesthesia. In terms of muscle damage condition is described as aching, hot, burning, stabbing, sharp, tiring, exhausting, cramping, squeezing and throbbing. Pain is negatively impacting her enjoyment of life, general activity, mood, recreational activities, relationships with people, sleep, walking, exercising and maintaining the home. Patient does endorse use of THC edibles for her chronic pain. [facility] Medical History Anxiety Cerebrovascular accident Fatigue Hypothyroidism Inflammatory polyarthropathy Insomnia Major depressive disorder Migraine Obesity Osteoarthritis Primary fibromyalgia Pure hypercholesterolemia Surgical History H/O shoulder surgery H/O wisdom tooth extraction History of 2 sections History of carpal tunnel release Hx of tonsillectomy Family History Mother Diabetes Hyperlipidemia Heart disease Depression Psoriasis Brother Diabetes Heart disease HIV (human immunodeficiency virus infection) Sister Malignant tumor of breast Depression Heart disease Father Hypertension Diabetes Social History Household Members: Spouse Alcohol intake: current Alcohol intake frequency: does not drink Patient Tobacco Use Status: Never used Tobacco Current occupational status: disabled Current occupation: used to work in IT.Disabled since 2015 Review of Systems Const All systems reviewed & are unremarkable except as noted in HPI and below Physical Exam Vital Signs: Last Vital Signs Pulse 101 H 07/17/23 08:33 Resp 18 07/17/23 08:33 BP 132/72 07/17/23 08:33 Pulse Ox 98 07/17/23 08:33 Oxygen Delivery Method Room Air 07/17/23 08:33 BMI result Body Mass Index 34.9 General: awake, alert, oriented. Answers questions appropriately. Fully engaged in examination. Skin: warm, dry, intact HEENT: Normocephalic. Hearing intact. Cardiac: External chest normal in appearance. Respiratory: No cough, audible wheezing or stridor. Abdomen: without gross distension. Neurological: Oriented to person, place, time and situation. Thought process intact. No gait abnormalities appreciated. Psychiatric: Appropriate mood and affect. Good judgment and insight. Results Reviewed Results Reviewed: 05/10/23 FINDINGS: Mineralization is normal. No fracture is seen and there is no dislocation. The posterior elements appear intact. Vertebral alignment is normal. There is a convex left spinal curvature centered at L2. There is sacralization of L5. There is disc space narrowing at several levels, most prominent at L4-L5 where the there is endplate sclerosis and marginal osteophyte. There is degenerative facet arthropathy at L3-L4 and L4-L5. The paraspinal soft tissues appear unremarkable. IMPRESSION: Scoliosis with degenerative disc and facet disease. Assessment & Plan Assessment & Plan (1) Lumbar spondylosis: Code(s): M47.816 - Spondylosis without myelopathy or radiculopathy, lumbar region (2) Facet arthritis of lumbar region: Code(s): M47.816 - Spondylosis without myelopathy or radiculopathy, lumbar region (3) Sacroiliac joint dysfunction of both sides: Code(s): M53.3 - Sacrococcygeal disorders, not elsewhere classified Isidro Hardy is a very pleasant 63-year-old female who presented back to the office today for follow up s/p Fluoroscopy guided therapeutic SI joint injections with local anesthetic performed 06/19/23. Patient reports 90% relief since the injections with improvement in function and mobility. Patient advised injections may be repeated every 3 months, she will call to schedule a follow up to repeat when pain returns. All questions and concerns were answered during the visit, follow up in 2 months for repeat therapeutic injections, sooner if needed. Coding Level of Care Code Est Pt Level 3 (89244) Diagnoses Lumbar spondylosis M47.816 Facet arthritis of lumbar region M47.816 Sacroiliac joint dysfunction of both sides M53.3
[2023-07-17 08:33] VITALS: BP 132/72; PULSE 101; RESP 18; O2SAT 98; BMI 34.9
== END 2023-07-17 08:49 | disposition home or self-care (01) ==
PROVIDERS: PCP Family Medicine; Visit Provider Registered Nurse Emergency
DX: M47.816 Spondylosis without myelopathy or radiculopathy, lumbar region (principal); M53.3 Sacrococcygeal disorders, not elsewhere classified
CPT/HCPCS: 99213

== ENCOUNTER → 2023-07-17 08:25 | Outpatient (BNVA) | payer MEDICARE, OTHER, SELFPAY | PROVIDERS: PCP Family Medicine; Visit Provider Registered Nurse Emergency | DX: M47.816 Spondylosis without myelopathy or radiculopathy, lumbar region (principal); M53.3 Sacrococcygeal disorders, not elsewhere classified | CPT/HCPCS: 99212 ==

== ENCOUNTER 2023-12-26 12:58 | Outpatient (AMB) | payer MEDICARE, OTHER, SELFPAY ==
[2023-12-26 13:07] VITALS: BP 125/66; PULSE 96; RESP 18; O2SAT 95; BMI 35.2
--- NOTE | 2023-12-26 13:07 | A.OFFVIS_ITS ---
Intake Vital Signs 12/26/23 13:07 Height 5 ft 5 in Weight 211 lb 6 oz BMI 35.2 BP 125/66 Blood Pressure Location Lt brachial Position Sitting Respiration 18 Pulse 96 Pulse Source Pulse Oximeter Pulse Oximetry (%) 95 Oxygen Delivery Method Room Air Intake Visit Reasons: FOLLOW UP TO DISCUSS REPEAT INJECTIONS Allergies clarithromycin [From Biaxin] Allergy (Mild, Verified 12/26/23 13:06) Unknown doxycycline Allergy (Mild, Verified 12/26/23 13:06) Abdominal Pain Penicillins Allergy (Mild, Verified 12/26/23 13:06) Rash codeine Adverse Reaction (Unknown, Verified 12/26/23 13:06) Hallucinations HPI HPI Comments History of Present Illness Details Patient presents back to the office today for follow-up bilateral SI joint dysfunction She underwent therapeutic injections 6 months ago, she reports the pain returned after 5 months. Pain over PSIS, worse with standing in one spot, walking and doing housework. Right side is worse than the left pain today is rated as a 6/10 Prior: Patient presents to the office today for follow up, 1 month s/p bilateral therapeutic SIJ injections. Patient reports 90% pain relief since the procedure with improvement in function and mobility. She is able to do things she enjoys like cook and bake that were too painful prior to the injections. She is looking forward to baking for the holidays which she has not been able to do for the last couple of years d/t the pain. Prior: Hayley presents back to the office today for follow-up, 2 days status post bilateral diagnostic SI joint injections. Patient reports 100% pain relief for the last 2 days. She has been able to wash dishes, cook, do laundry and even garden without pain . Prior: Hayley is a very pleasant 63 year old female who presents to the office today for evaluation and management of her chronic lower back pain. Patient reports that she has been suffering with this pain for greater than 10 years, pain comes and goes but is present at some point every single day. She rates her pain today as 7/10, across her lower back. Patient reports the pain is worse with doing activities that require bending over, if she sits for too long, climbs or descends stairs and with lifting. Patient has had x-rays in the past at [facility] in [place]. She has done physical therapy in the past without relief of her pain, she does home exercise program, takes anti-inflammatory pain medicine and is currently on duloxetine and Lyrica for her fibromyalgia. She has tried muscle relaxers in the past but she did not tolerate. She has never tried chiropractor, acupunctur e, massage or injections to her lower back. Patient denies red flag symptoms including loss of bowel, bladder or saddle anesthesia. In terms of muscle damage condition is described as aching, hot, burning, stabbing, sharp, tiring, exhausting, cramping, squeezing and throbbing. Pain is negatively impacting her enjoyment of life, general activity, mood, recreational activities, relationships with people, sleep, walking, exercising and maintaining the home. Patient does endorse use of THC edibles for her chronic pain. [facility] Medical History Anxiety Cerebrovascular accident Fatigue Hypothyroidism Inflammatory polyarthropathy Insomnia Major depressive disorder Migraine Obesity Osteoarthritis Primary fibromyalgia Pure hypercholesterolemia Surgical History H/O shoulder surgery H/O wisdom tooth extraction History of 2 sections History of carpal tunnel release Hx of tonsillectomy Family History Mother Diabetes Hyperlipidemia Heart disease Depression Psoriasis Brother Diabetes Heart disease HIV (human immunodeficiency virus infection) Sister Malignant tumor of breast Depression Heart disease Father Hypertension Diabetes Social History Household Members: Spouse Alcohol intake: current Alcohol intake frequency: does not drink Patient Tobacco Use Status: Never used Tobacco Current occupational status: disabled Current occupation: used to work in IT.Disabled since 2016 Review of Systems Const All systems reviewed & are unremarkable except as noted in HPI and below Physical Exam Vital Signs: Last Vital Signs Pulse 96 12/26/23 13:07 Resp 18 12/26/23 13:07 BP 125/66 12/26/23 13:07 Pulse Ox 95 12/26/23 13:07 Oxygen Delivery Method Room Air 12/26/23 13:07 BMI result Body Mass Index 35.2 General: awake, alert, oriented. Answers questions appropriately. Fully engaged in examination. Skin: warm, dry, intact HEENT: Normocephalic. Hearing intact. Cardiac: External chest normal in appearance. Respiratory: No cough, audible wheezing or stridor. Abdomen: without gross distension. MS: Able to transition from sit to stand unassisted. Ambulates with bilaterally normal heel strike and toe off Visual inspection without gross abnormality Tender to palpation over bilateral PSIS Nontender to palpation over midline lumbar vertebrae Strength: 5/5 BLE Straight leg raises with and without dorsiflexion negative bilaterally TRACE positive bilaterally Thigh thrust positive bilaterally SI compression positive bilaterally Neurological: Oriented to person, place, time and situation. Thought process intact. No gait abnormalities appreciated. Psychiatric: Appropriate mood and affect. Good judgment and insight. Results Reviewed Results Reviewed: 05/10/23 FINDINGS: Mineralization is normal. No fracture is seen and there is no dislocation. The posterior elements appear intact. Vertebral alignment is normal. There is a convex left spinal curvature centered at L2. There is sacralization of L5. There is disc space narrowing at several levels, most prominent at L4-L5 where the there is endplate sclerosis and marginal osteophyte. There is degenerative facet arthropathy at L3-L4 and L4-L5. The paraspinal soft tissues appear unremarkable. IMPRESSION: Scoliosis with degenerative disc and facet disease. Assessment & Plan Assessment & Plan (1) Lumbar spondylosis: Code(s): M47.816 - Spondylosis without myelopathy or radiculopathy, lumbar region (2) Facet arthritis of lumbar region: Code(s): M47.816 - Spondylosis without myelopathy or radiculopathy, lumbar region (3) Sacroiliac joint dysfunction of both sides: Code(s): M53.3 - Sacrococcygeal disorders, not elsewhere classified Isidro Hardy is a very pleasant 63-year-old female who presented back to the office today for follow up bilateral sacroiliac joint dysfunction She is 6 months status post bilateral therapeutic SI joint injections. These provided her 90% pain relief for 5 months, she would like to repeat these injections today The risks, consequences, alternatives, and benefits of various treatment options were discussed with the patient in great detail, including conservative manageme nt, injections and procedures. Schedule for Fluoroscopy guided bilateral therapeutic SI joint injections with local anesthetic. Justification for interventional therapy: ? Patient with average pain > 6/10 ? Patient has exhausted conservative therapy, physical therapy, NSAIDs SI belt has been ordered. Patient advised on use. All questions and concerns have been answered and patient agrees with the plan. Follow up after injections and sooner if needed. Coding Level of Care Code Est Pt Level 3 (86551) Diagnoses Lumbar spondylosis M47.816 Facet arthritis of lumbar region M47.816 Sacroiliac joint dysfunction of both sides M53.3
== END 2023-12-26 13:37 | disposition home or self-care (01) ==
PROVIDERS: PCP Family Medicine; Visit Provider Registered Nurse Emergency
DX: M47.816 Spondylosis without myelopathy or radiculopathy, lumbar region (principal); M53.3 Sacrococcygeal disorders, not elsewhere classified
CPT/HCPCS: 99213

== ENCOUNTER → 2023-12-26 12:58 | Outpatient (BNVA) | payer MEDICARE, OTHER, SELFPAY | PROVIDERS: PCP Family Medicine; Visit Provider Registered Nurse Emergency | DX: M47.816 Spondylosis without myelopathy or radiculopathy, lumbar region (principal); M53.3 Sacrococcygeal disorders, not elsewhere classified | CPT/HCPCS: 99212 ==

== ENCOUNTER 2024-01-03 10:26 | Outpatient (AMB) | payer MEDICARE, OTHER, SELFPAY ==
--- NOTE | 2024-01-03 10:44 | MHC.OFFVIS ---
Vital Signs 01/03/24 10:46 Height 5 ft 5 in Weight 216 lb 14.958 oz BMI 36.1 BP 116/68 Blood Pressure Location Rt brachial Position Sitting Pulse 101 H Pulse Source Pulse Oximeter Pulse Oximetry (%) 92 Oxygen Delivery Method Room Air Intake Visit Reasons: OA Intake Note: Patient last seen 04/27/23 presents today for follow up and test results. Pt reports aches and pains everywhere SI injections with pain mgmt [employer] Supervisor Required: No Accompanied by: Self / Same As Patient Allergies clarithromycin [From Biaxin] Allergy (Mild, Verified 01/03/24 10:49) Unknown doxycycline Allergy (Mild, Verified 01/03/24 10:49) Abdominal Pain Penicillins Allergy (Mild, Verified 01/03/24 10:49) Rash codeine Adverse Reaction (Unknown, Verified 01/03/24 10:49) Hallucinations Medication List - Last Reconciled 01/03/24 by Zelalem Sethi MD atorvastatin 40 mg PO DAILY bupropion HCl XL 150 mg PO DAILY ntceobtdpl-fobwodmrrfvzt-ticf 50-325-40 mg 1 tab PO DAILY PRN cyclosporine 0.05% (Restasis) drps ophthalmic (eye) BID duloxetine 60 mg PO DAILY duloxetine 30 mg PO DAILY levothyroxine 100 mcg PO DAILY oxybutynin chloride ER 5 mg PO DAILY pantoprazole 40 mg PO DAILY pregabalin mg PO sumatriptan succinate 100 mg PO DAILY PRN HPI Comments Details: 63-year-old female previously diagnosed with sciatica arthritis returns for follow-up. She is not on DMARDs. She states that she had a bad winter with generalized pain due to being unable to go to [place]. They were not able to drive to [place] this winter. She states that she was evaluated by pain management and had bilateral SI joint injections which gave about 5 months relief. She continues to have diffuse pain everywhere. Initial history: This is a 62-year-old female with a past medical history of psoriatic arthritis who presents for evaluation of diffuse joint pain. Her previous service parts coordinator left the practice. Patient states that she started having diffuse pains since the , she was ultimately diagnosed with fibromyalgia around 2004 and had been on numerous DMARDs. Please see assessment. Most recently she was started on Cosentyx in June of 2021 which was not effective then switched to SKyrizi which was started in June of 2022 which patient also states that it is not effective. She has had a colonoscopy in the past which showed polyps that were non malignant. No history suggestive of uveitis or IBD Patient continues to have diffuse pain in her hands, knuckles, wrists, lower back, knees, feet. Pain is most severe at night. Patient has a history of fibromyalgia and is on duloxetine and Lyrica. She has history of obstructive sleep apnea and uses a CPAP machine. States that her sister recently . Patient is currently trying to find a psychotherapist [facility] Medical History Fatigue Primary fibromyalgia Osteoarthritis Inflammatory polyarthropathy Cerebrovascular accident Migraine Insomnia Anxiety Major depressive disorder Obesity Pure hypercholesterolemia Hypothyroidism Surgical History H/O shoulder surgery H/O wisdom tooth extraction Hx of tonsillectomy History of 2 sections History of carpal tunnel release Family History Mother Diabetes Hyperlipidemia Heart disease Depression Psoriasis Brother Diabetes Heart disease HIV (human immunodeficiency virus infection) Sister Malignant tumor of breast Depression Heart disease Father Hypertension Diabetes Social History Household Members: Spouse Alcohol intake: current Alcohol intake frequency: does not drink Patient Tobacco Use Status: Never used Tobacco Current occupational status: disabled Current occupation: used to work in IT.Disabled since 2015 Review of Systems Musc Reports back pain, Reports arthralgias, Reports joint swelling, Reports limited range of motion and Reports stiffness Physical Exam Vital Signs: Last Vital Signs Pulse 101 H 01/03/24 10:46 BP 116/68 01/03/24 10:46 Pulse Ox 92 01/03/24 10:46 Oxygen Delivery Method Room Air 01/03/24 10:46 BMI result Body Mass Index 36.1 Const General: cooperative, healthy appearing and comfortable Nutritional Appearance: obese Orientation/consciousness: patient oriented x3 Limitations: no limitations HEENT Head: Yes normocephalic and Yes atraumatic Mouth: moist mucous membranes Resp Effort & Inspection: normal respiratory effort Skin General skin exam: no rashes or lesions noted Neuro General: patient oriented x3 Extrem Other: Bilateral wrist tenderness and pain with full flexion and extension Bilateral diffuse MCP tenderness Extensive osteoarthritic changes of both hands with prominent Rajendra's and Heberden's nodes bilaterally that are tender Normal range of motion of both elbows and shoulders Bilateral diffuse MTP tenderness Diffuse fibromyalgia tender points Results Reviewed Results Reviewed: Labs 2020 MARIBELL/RF/CCP/HLA B27 all negative? ESR/CRP normal CBC the and CMP within normal SI joint x-ray 05/2021? Impression:? No evidence of sacroiliitis, degenerative change of the lumbosacral junction on the left Assessment & Plan Assessment & Plan (1) Psoriatic arthritis: Comment: started in the . NSAIDs failed & caused GI upset dx 2004 failed Humira, Enbrel, HCQ MTX caused transaminitis Cosentyx started 06/30 advanced to 300 mg not effective Skyrizi started 07/01-01/30 ineffective Code(s): L40.50 - Arthropathic psoriasis, unspecified Category: Medical Plan: This is a 63-year-old female with a past medical history of seronegative arthritis who presents for follow-up. Patient is not on any DMARDs at the moment. Upon evaluation I do not see any signs suggestive of an inflammatory arthritis despite not being on any DMARDs for about a year. There is no psoriasis rash on exam. Has significant osteoarthritic changes of both hands as well as degenerative arthritis of her spine and fibromyalgia Her inflammatory markers have been persistently normal. X-rays do not show sacroiliitis She has received bilateral SI joint injections by Pain Management which gave about 5 months relief. She will be going back for repeat injections soon No need for further DMARDs at this point Follow-up as needed (2) Primary fibromyalgia: Code(s): M79.7 - Fibromyalgia Category: Medical Plan: Fibromyalgia was discussed in detail with patient last visit. Encouraged patient to try to incorporate light activities. Continue duloxetine and Lyrica. Prescribed by other providers Plan I spent 20 minutes reviewing patient's chart, evaluating patient, counseling patient and documenting in the chart Coding Level of Care Code Est Pt Level 3 (36750) Diagnoses Psoriatic arthritis L40.50 Primary fibromyalgia M79.7
[2024-01-03 10:46] VITALS: BP 116/68; PULSE 101; O2SAT 92; BMI 36.1
== END 2024-01-03 11:15 | disposition home or self-care (01) ==
PROVIDERS: PCP Family Medicine; Visit Provider Student in an Organized Health Care Education/Training Program
DX: L40.50 Arthropathic psoriasis, unspecified (principal); M79.7 Fibromyalgia
CPT/HCPCS: 99213

== ENCOUNTER → 2024-01-03 10:26 | Outpatient (BNVA) | payer MEDICARE, OTHER, SELFPAY | PROVIDERS: PCP Family Medicine; Visit Provider Student in an Organized Health Care Education/Training Program | DX: L40.50 Arthropathic psoriasis, unspecified (principal); M79.7 Fibromyalgia | CPT/HCPCS: 99212 ==

== ENCOUNTER 2024-01-08 06:20 | Outpatient (REF) | payer MEDICARE, OTHER, SELFPAY ==
--- NOTE | ~2024-01-08 | FL_ITS ---
EXAMINATION: XR FLUOROSCOPY WITH IMAGES CLINICAL INFORMATION: Sacrococcygeal disorders. Bilateral SI joint injection. COMPARISON: None available. TECHNIQUE: Fluoroscopy Supervised By: Dr. Claudio Owen. Fluoroscopy Time: 0.2 MIN. Cumulative Dose: 4.54 mGy. DAP: 1.23 Gycm2. Images: 2. FINDINGS: Intraoperative fluoroscopy and spot films were performed during a procedure in the OR. A needle is seen over each SI joint with contrast surrounding the tip. Please see Dr. Claudio Owen's report for complete details. FL/FL guidance in treatment room IMPRESSION: Intraoperative fluoroscopy and spot films were obtained. Please see Dr. Claudio Owen's report for complete details.
== END 2024-01-08 06:21 | disposition home or self-care (01) ==
LOC: CF 06:20
PROVIDERS: Visit Provider Anesthesiology
DX: M47.816 Spondylosis without myelopathy or radiculopathy, lumbar region (principal); M53.3 Sacrococcygeal disorders, not elsewhere classified
CPT/HCPCS: 27096; J2795; J3301; Q9967

== ENCOUNTER 2024-01-08 14:33 | Outpatient (AMB) | payer MEDICARE, OTHER, SELFPAY ==
--- NOTE | 2024-01-08 14:42 | MHC.OFFVIS ---
Vital Signs 01/08/24 15:11 01/08/24 15:12 Height 5 ft 5 in Weight 216 lb BMI 35.9 BP 128/82 124/76 Blood Pressure Location Lt brachial Lt brachial Position Sitting Sitting Respiration 16 18 Pulse 92 82 Pulse Source Pulse Oximeter Pulse Oximeter Pulse Oximetry (%) 93 82 L Oxygen Delivery Method Room Air Room Air Comment Pre-Op Post-Op Intake Visit Reasons: Mayito theraputic SIJ inj Allergies clarithromycin [From Biaxin] Allergy (Mild, Verified 01/03/24 10:49) Unknown doxycycline Allergy (Mild, Verified 01/03/24 10:49) Abdominal Pain Penicillins Allergy (Mild, Verified 01/03/24 10:49) Rash codeine Adverse Reaction (Unknown, Verified 01/03/24 10:49) Hallucinations PFSH Medical History Fatigue Primary fibromyalgia Osteoarthritis Inflammatory polyarthropathy Cerebrovascular accident Migraine Insomnia Anxiety Major depressive disorder Obesity Pure hypercholesterolemia Hypothyroidism Surgical History H/O shoulder surgery H/O wisdom tooth extraction Hx of tonsillectomy History of 2 sections History of carpal tunnel release Family History Mother Diabetes Hyperlipidemia Heart disease Depression Psoriasis Brother Diabetes Heart disease HIV (human immunodeficiency virus infection) Sister Malignant tumor of breast Depression Heart disease Father Hypertension Diabetes Social History Household Members: Spouse Alcohol intake: current Alcohol intake frequency: does not drink Patient Tobacco Use Status: Never used Tobacco Current occupational status: disabled Current occupation: used to work in IT.Disabled since 2015 Physical Exam Vital Signs: Last Vital Signs Pulse 82 01/08/24 15:12 Resp 18 01/08/24 15:12 BP 124/76 01/08/24 15:12 Pulse Ox 82 L 01/08/24 15:12 Oxygen Delivery Method Room Air 01/08/24 15:12 BMI result Body Mass Index 35.9 Assessment & Plan Assessment & Plan (1) Lumbar spondylosis: Code(s): M47.816 - Spondylosis without myelopathy or radiculopathy, lumbar region Category: Medical (2) Facet arthritis of lumbar region: Code(s): M47.816 - Spondylosis without myelopathy or radiculopathy, lumbar region Category: Medical (3) Sacroiliac joint dysfunction of both sides: Code(s): M53.3 - Sacrococcygeal disorders, not elsewhere classified Category: Medical Plan: Bilateral therapeutic sacroiliac joint injection Informed consent was explained thoroughly to the patient. All questions about benefits and risks for the procedure were answered. Patient came to the operating room and was positioned prone on the operating table with the pillow under the pelvis. Time out was performed delineating name and of the patient, allergies and the nature of the procedure. The lower back and buttocks of the patient were prepped with ChloraPrep prepped and draped with sterile utility towels. C-arm was brought over the operating field and sq picture of patient's pelvis was demonstrated on the screen. For the right joint tilting C-arm contralateral to the site of the joint the most posterior portion of the joints was superimposed with anterior silhouette of the joint. Skin was injected in the projection of the joint slightly medial to the location of the joint with 25 gauge 1/2 inch needle using local lidocaine 2% .After that 22 gauge 3 and 1/2 inch needle was driven to the right joint in tunnel vision fashion. When needle entered the joint capsule injection of the contrast was performed demonstrating intra-articular and minimally periarticular spread of the contrast. After that 4 cc. of ropivacaine 0.5% mixed with kenalog 40 mg was injected into the joint. Upon completion of the injections the needle was removed Sterile dressing was applied. The procedure performed on the left SI joint in the mirroring fashion. Upon completion of the injection patient was taken outside of the operating room to the recovery room where recovered uneventfully. Plan as above Orders: Orders FL guidance in treatment room 01/08/24 M53.3 - Sacrococcygeal disorders, not elsewhere classified Coding Level of Care Code Procedure Only Diagnoses Lumbar spondylosis M47.816 Facet arthritis of lumbar region M47.816 Sacroiliac joint dysfunction of both sides M53.3
[2024-01-08 15:11] VITALS: BP 128/82; PULSE 92; RESP 16; O2SAT 93; BMI 35.9
[2024-01-08 15:12] VITALS: BP 124/76; PULSE 82; RESP 18; O2SAT 82
== END 2024-01-08 15:08 | disposition home or self-care (01) ==
LOC: HO.PMCPRC 14:33
PROVIDERS: PCP Family Medicine; Visit Provider Anesthesiology
DX: M47.816 Spondylosis without myelopathy or radiculopathy, lumbar region (principal); M53.3 Sacrococcygeal disorders, not elsewhere classified
CPT/HCPCS: 27096